=== PATIENT | male | born 1990 | race Asian ===

== ENCOUNTER 2020-03-04 11:27 | Outpatient (REF) | payer MEDICARE, MEDICAID, SELFPAY | END 2020-03-04 11:28 | disposition home or self-care (01) | LOC: HO.LAB 11:27 | PROVIDERS: PCP Internal Medicine; Visit Provider Internal Medicine | DX: Z20.828 Contact with and (suspected) exposure to other viral communicable diseases (principal) | CPT/HCPCS: C9803; U0003 ==

== ENCOUNTER 2020-04-15 07:50 | Outpatient (REF) | payer MEDICARE, MEDICAID, SELFPAY | END 2020-04-15 07:51 | disposition home or self-care (01) | LOC: HO.LAB 07:50 | PROVIDERS: Visit Provider Internal Medicine | DX: Z20.822 Contact with and (suspected) exposure to COVID-19 (principal) | CPT/HCPCS: 36415; C9803; U0003 ==

== ENCOUNTER 2022-06-25 09:13 | Outpatient (REF) | payer MEDICARE, MEDICAID, SELFPAY ==
[2022-06-25 09:37] LABS: MANUAL DIFF FLAG NO
[2022-06-25 09:58] LABS: Basophils Percent Auto 0.5 % (0-2); Eosinophils Absolute Auto 0.1 X10*3/uL (0.0-0.4); Eosinophils Percent Auto 1.3 % (0-4); Hematocrit 43.3 % (42.0-52.0); Hemoglobin 14.4 g/dl (14.0-18.0); Imm Gran Abs Auto 0.03 X10*3/uL (0.00-0.03); Imm Gran Pct Auto 0.4 % (0.0-0.4); Lymphocytes Absolute Auto 2.2 X10*3/uL (1.2-4.9); Lymphocytes Percent Auto 26.2 % (20-40); Mean Corpuscular HGB Conc 33.3 g/dl (31.0-36.0); Mean Corpuscular Hemoglobin 29.4 pg (27.0-33.0); Mean Corpuscular Volume 88.5 fL (80.0-98.0); Mean Platelet Volume 10.1 fL (9.4-12.4); Monocytes Absolute Auto 0.4 X10*3/uL (0.1-1.2); Monocytes Percent Auto 4.8 % (2-11); Neutrophils Absolute Auto 5.5 x10*3/uL (2.0-8.3); Neutrophils Percent Auto 66.8 % (45-73); Platelet Count 250 X10*3/uL (160-400); Red Blood Count 4.89 X10*6/uL (4.60-5.80); Red Cell Distribution Width 12.9 % (11.0-16.0); White Blood Count 8.3 X10*3/uL (4.8-10.8)
[2022-06-25 10:43] LABS: Estimated Average Glucose 105 mg/dL; Hemoglobin A1c % 5.3 %
[2022-06-25 11:42] LABS: Alanine Aminotransferase 26 U/L (0-40); Albumin Level 3.9 g/dL (3.5-5.0); Alkaline Phosphatase 55 U/L (39-117); Anion Gap 13 (12-20); Aspartate Amino Transferase 17 U/L (5-37); Bilirubin Total 0.6 mg/dL (0.0-1.0); Blood Urea Nitrogen 10 mg/dL (9-16); Carbon Dioxide 25 mmol/L (22-29); Chloride 106 mmol/L (96-108); Cholesterol 141 mg/dL; Estimated Glomerular Filt Rate > 60; Glucose Random 95 mg/dL (60-115); HDL Cholesterol 39 mg/dL; LDL Cholesterol Calculated 96 mg/dl; Potassium 4.3 mmol/L (3.3-5.1); Sodium 140 mmol/L (135-145); Total Protein 6.8 g/dL (6.5-8.0); Triglycerides 34 mg/dL
[2022-06-25 12:08] LABS: Valproate < 12.5 mcg/mL (50.0-100.0)
[2022-06-26 17:38] LABS: Prolactin 7.4 ng/mL (2.0-18.0)
== END 2022-06-25 09:14 | disposition home or self-care (01) ==
LOC: HO.LAB 09:13
PROVIDERS: PCP Internal Medicine; Visit Provider Registered Nurse
DX: F84.0 Autistic disorder (principal)
CPT/HCPCS: 36415; 80053; 80061; 80164; 83036; 84146; 85025

== ENCOUNTER 2022-12-19 11:22 | Outpatient (AMB) | payer MEDICARE, MEDICAID, SELFPAY ==
--- NOTE | 2022-12-19 11:25 | A.OFFPC_ITS ---
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 Accompanied by: Father Allergies No Known Allergies Allergy (Verified 12/19/22 11:27) Medication List - Last Reconciled 12/19/22 by Medardo Denis MD clonidine HCl 0.3 mg PO .QHS divalproex ER 500 mg PO DAILY risperidone 0.5 mg PO BID Tobacco use date assessed: 12/19/22 Dental Screening Dental Screen Date: 12/19/22 Did you have a dental visit in the last 12 months?: No Did you have a dental problem in the last 6 months where you did not have access to dental care?: No Was dental information given to patient?: Patient has dentist HPI annual exam HPI Details 32-year-old obese male with autism comes in for physical exam last seen in October 2021 blood work requested. [facility] Medical History (Updated 12/19/22 @ 11:45 by Medardo Denis MD) Vitamin D deficiency Obesity Autism Surgical History No pertinent past surgical history Family History Father No problems noted. Mother No problems noted. Social History Housing: House Alcohol intake: never Patient Tobacco Use Status: Never used Tobacco e-Cigarette/Vaping Use: Never Used Second Hand Smoke Exposure: No service: No Current occupational status: disabled Cognitive needs: No Hearing needs: No Vision needs: No Questionnaire PHQ-9 Over the last 2 weeks, how often have you been bothered by any of the following problems? 1. Little interest or pleasure in doing things: not at all 2. Feeling down, depressed, or hopeless: not at all 3. Trouble falling or staying asleep, or sleeping too much: not at all 4. Feeling tired or having little energy: not at all 5. Poor appetite or overeating: not at all 6. Feeling bad about yourself - or that you are a failure or have let yourself or your family down: not at all 7. Trouble concentrating on things, such as reading the newspaper or watching television: not at all 8. Moving or speaking so slowly that other people could have noticed. Or the opposite - being so fidgety or restless that you have been moving around a lot more than usual: several days 9. Thoughts that you would be better off or of hurting yourself in some way: not at all Total score: 1 Source: Developed by Drs. Orville Aranda, Stephania Mcclellan, Jose Alfredo Diop and colleagues, with an educational antione from [employer]. Thrive Questionnaire Date Thrive assessed: 12/19/22 I am a: Patient What is your living situation today?: I have a steady place to live Within the past 12 months, did the food you bought not last and you didn't have the money to get more?: Never true Within the past 12 months, did you worry whether your food would run out before you got money to buy more?: Never true Do you have trouble paying for medicines?: No Do you have trouble getting transportation to medical appointments?: No Do you have trouble paying your heating and electricity bill?: No Do you have trouble taking care of your child, family member or friend?: No Do you have trouble with day-to-day activities such as bathing, preparing meals, shopping, managing finances, etc.?: No Are you currently unemployed and looking for a job?: No Are you interested in more education?: No Please select the resources that you would like help with: None Currently or been in a relationship where the following occur: no concerns reported AUDIT C Alcohol Use Questionnaire (AUDIT-C) 1. How often do you have a drink containing alcohol?: Never Total Score: 0 YAIMA-7 AMB Questionnaire YAIMA-7 Date YAIMA - 7 assessed: 12/19/22 Feeling nervous, anxious, or on edge: 0 = Not at all Not being able to stop or control worryin = Not at all Worrying too much about different things: 0 = Not at all Trouble relaxin = Not at all Being so restless that it is hard to sit still: 0 = Not at all Becoming easily annoyed or irritable: 0 = Not at all Feeling afraid as if something awful might happen: 0 = Not at all Total YAIMA-7 score (0-4 normal; 5-9 mild; 10-14 moderate; 15-21 severe): 0 Source: Developed by Drs. Orville Aranda, Stephania Mcclellan, Jose Alfredo Diop and colleagues, with an educational antione from [employer]. Review of Systems Const Denies poor appetite and Denies weakness Eyes Denies no additional complaints ENT Reports Normal hearing present, Denies dizziness, Denies nasal congestion, Denies tinnitus and Denies sore throat Card Denies chest pain, Denies syncope, Denies rapid heart rate and Denies dyspnea Resp Denies cough and Denies dyspnea GI Denies change in stool character, Reports constipation, Denies diarrhea, Denies nausea and Denies vomiting Denies dysuria and Denies urinary frequency Neuro Reports Normal hearing present, Denies confusion, Denies dizziness, Denies syncope and Denies weakness Psych Denies confusion Physical exam (Primary Care) Vital Signs: Last Vital Signs Pulse 74 12/19/22 11:26 BP 114/80 12/19/22 11:26 Pulse Ox 97 12/19/22 11:26 Oxygen Delivery Method Room Air 12/19/22 11:26 BMI result Body Mass Index 35.9 Tobacco/Smoking Status: Tobacco use Status Tobacco use date assessed 12/19/22 12/19/22 11:31 Patient Tobacco Use Status Never used Tobacco 12/19/22 11:26 e-Cigarette/Vaping Use Never Used 12/19/22 11:26 PHQ-9: PHQ-9 Score PHQ-9: Total score 1 12/19/22 11:31 Thrive Assessment: Date of Thrive Assessment Date Thrive assessed 12/19/22 12/19/22 11:31 Currently or been in a relationship where the following occur: no concerns reported Const General: No confusion Orientation/consciousness: No confusion HENMT Head: Yes normocephalic Ears: external ears normal and TM's normal bilaterally Face and sinus: Yes normal facial exam Mouth: moist mucous membranes Throat: Yes tonsils normal Eyes Conjunctivae: conjunctivae normal Pupils: Equal, round and reactive pupils present and Pupil accommodation reflex normal Direct Ophthalmoscopy: normal light reflex Neck Neck: No lymphadenopathy Thyroid: Thyroid normal Chest Chest palpation & inspection: normal inspection of the chest Resp Effort & Inspection: normal respiratory effort and no audible wheezes Auscultation: clear to auscultation bilaterally, no crackles, no wheezes and lung sounds not diminished Cardio Rate: regular rate Rhythm: regular rhythm Peripheral pulses: radial pulses present and dorsalis pedis present GI Palpation (GI): no masses Auscultation: normal bowel sounds and normoactive bowel sounds Rectal Exam - Male: Yes deferred Male General Exam: Yes normal external exam Skin General skin exam: no rashes or lesions noted Rashes: no rashes Neuro General: No confusion Cranial nerves: Yes Equal, round and reactive pupils present and Yes Normal hearing present Cognition (Neuro): normal cognition Gait exam (Neuro): Normal gait present Motor exam (neuro): 5/5 motor strength present throughout Deep tendon reflexes (DTR's): Right brachioradialis reflex intensity grade: 2+, Left brachioradialis reflex intensity grade: 2+, Right patellar reflex intensity grade: 2+ and Left patellar reflex intensity grade: 2+ Extrem General: No edema Assessment and Plan Assessment & Plan (1) Annual physical exam: Code(s): Z00.00 - Encounter for general adult medical examination without abnormal findings (2) Obesity: Comment: Code(s): E66.9 - Obesity, unspecified Qualifiers: Obesity type: due to excess calories Obesity classification: adult class 2 (BMI 35 - 39.9) Serious obesity comorbidity presence: without serious comorbidity Body mass index: BMI 38.0-38.9 Qualified Code(s): E66.09 - Other obesity due to excess calories; Z68.38 - Body mass index [BMI] 38.0-38.9, adult Plan: Diet and exercise (3) Autism: Code(s): F84.0 - Autistic disorder Plan: Continue with present medication (4) Mixed incontinence urge and stress: Code(s): N39.46 - Mixed incontinence Orders: Orders Free T4 (Free Thyroxine) 6 Months E66.09 - Other obesity due to excess calories, Z68.38 - Body mass index [BMI] 38.0-38.9, adult Thyroid Stimulating Hormone 6 Months E66.09 - Other obesity due to excess calories, Z68.38 - Body mass index [BMI] 38.0-38.9, adult Vitamin B12 and Folate 6 Months E66.09 - Other obesity due to excess calories, Z68.38 - Body mass index [BMI] 38.0-38.9, adult UA w Microscopic 6 Months N39.46 - Mixed incontinence Complete Blood Count Auto Diff 6 Months E66.09 - Other obesity due to excess calories, Z68.38 - Body mass index [BMI] 38.0-38.9, adult Comprehensive Met. Panel 6 Months E66.09 - Other obesity due to excess calories, Z68.38 - Body mass index [BMI] 38.0-38.9, adult Lipid Panel 6 Months E66.09 - Other obesity due to excess calories, E78.00 - Pure hypercholesterolemia, unspecified, Z68.38 - Body mass index [BMI] 38.0-38 .9, adult Hemoglobin A1c 6 Months E66.09 - Other obesity due to excess calories, Z68.38 - Body mass index [BMI] 38.0-38.9, adult Valproate 6 Months E66.09 - Other obesity due to excess calories, Z68.38 - Body mass index [BMI] 38.0-38.9, adult Medications: New [DEPENDS XXL] As directed 100 ea 11RF F84.0 - Autistic disorder, N39.46 - Mixed incontinence Coding Level of Care Code Est Pt Prev Care 18-39y(77416) Diagnoses Annual physical exam Z00.00 Class 2 obesity due to excess calories without serious comorbidity with body mass index (BMI) of 38.0 to 38.9 in adult E66.09; Z68.38 Obesity type: due to excess calories Obesity classification: adult class 2 (BMI 35 - 39.9) Serious obesity comorbidity presence: without serious comorbidity Body mass index: BMI 38.0-38.9 Autism F84.0 Mixed incontinence urge and stress N39.46
[2022-12-19 11:26] VITALS: BP 114/80; PULSE 74; O2SAT 97; BMI 35.9
== END 2022-12-19 11:50 | disposition home or self-care (01) ==
PROVIDERS: PCP Internal Medicine; Visit Provider Internal Medicine
DX: Z00.00 Encounter for general adult medical examination without abnormal findings (principal); E66.09 Other obesity due to excess calories; Z68.38 Body mass index [BMI] 38.0-38.9, adult; F84.0 Autistic disorder; N39.46 Mixed incontinence
CPT/HCPCS: 99395

== ENCOUNTER 2023-12-17 09:50 | Outpatient (REF) | payer MEDICARE, MEDICAID, SELFPAY ==
[2023-12-17 10:08] LABS: MANUAL DIFF FLAG NO
[2023-12-17 10:57] LABS: Basophils Absolute Auto 0.1 X10*3/uL (0.0-0.2); Basophils Percent Auto 0.6 % (0-2); Eosinophils Absolute Auto 0.1 X10*3/uL (0.0-0.4); Eosinophils Percent Auto 1.3 % (0-4); Hematocrit 43.1 % (42.0-52.0); Imm Gran Abs Auto 0.04 X10*3/uL (0.00-0.03); Imm Gran Pct Auto 0.5 % (0.0-0.4); Lymphocytes Absolute Auto 2.5 X10*3/uL (1.2-4.9); Mean Corpuscular HGB Conc 32.5 g/dl (31.0-36.0); Mean Corpuscular Volume 89.2 fL (80.0-98.0); Mean Platelet Volume 10.1 fL (9.4-12.4); Monocytes Absolute Auto 0.4 X10*3/uL (0.1-1.2); Monocytes Percent Auto 5.1 % (2-11); Neutrophils Absolute Auto 5.5 x10*3/uL (2.0-8.3); Neutrophils Percent Auto 63.5 % (45-73); Platelet Count 242 X10*3/uL (160-400); Red Blood Count 4.83 X10*6/uL (4.60-5.80); Red Cell Distribution Width 12.9 % (11.0-16.0); White Blood Count 8.7 X10*3/uL (4.8-10.8)
[2023-12-17 11:25] LABS: Estimated Average Glucose 111 mg/dL; Hemoglobin A1c % 5.5 % (<6.0)
[2023-12-17 11:46] LABS: Alanine Aminotransferase 33 U/L (0-40); Albumin Level 3.8 g/dL (3.5-5.0); Alkaline Phosphatase 51 U/L (39-117); Anion Gap 12 (12-20); Aspartate Amino Transferase 18 U/L (5-37); Bilirubin Total 0.3 mg/dL (0.0-1.0); Blood Urea Nitrogen 16 mg/dL (9-16); Calcium 9.4 mg/dL (8.4-10.2); Carbon Dioxide 22 mmol/L (22-29); Chloride 107 mmol/L (96-108); Cholesterol 123 mg/dL (<200); Estimated Glomerular Filt Rate > 60; Glucose Random 88 mg/dL (60-115); HDL Cholesterol 37 mg/dL (>40); LDL Cholesterol Calculated 79 mg/dL (<100); Potassium 4.3 mmol/L (3.3-5.1); Sodium 137 mmol/L (135-145); Total Protein 7.4 g/dL (6.5-8.0); Triglycerides 37 mg/dL (<150)
[2023-12-17 12:04] LABS: Valproate < 12.5 mcg/mL (50.0-100.0)
[2023-12-18 08:09] LABS: Prolactin 6.2 ng/mL (2.0-18.0)
== END 2023-12-17 09:51 | disposition home or self-care (01) ==
LOC: HO.LAB 09:50
PROVIDERS: PCP Internal Medicine; Visit Provider Registered Nurse
DX: Z79.899 Other long term (current) drug therapy (principal)
CPT/HCPCS: 36415; 80053; 80061; 80164; 83036; 84146; 85025

== ENCOUNTER 2023-12-24 09:00 | Outpatient (AMB) | payer MEDICARE, MEDICAID, SELFPAY ==
[2023-12-24 09:01] VITALS: BP 126/74; PULSE 74; O2SAT 97; BMI 46.8
--- NOTE | 2023-12-24 09:01 | A.OFFPC_ITS ---
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 [facility] Medical History (Updated 12/24/23 @ 12:15 by Medardo Denis MD) Obesity Vitamin D deficiency Autism Surgical History No pertinent past surgical history Family History Father No problems noted. Mother No problems noted. Social History Housing: House Alcohol intake: never Patient Tobacco Use Status: Never used Tobacco Tobacco use type: Cigarette e-Cigarette/Vaping Use: Never Used Second Hand Smoke Exposure: No service: No Current occupational status: disabled Cognitive needs: Yes Hearing needs: No Vision needs: No Questionnaire PHQ-9 Over the last 2 weeks, how often have you been bothered by any of the following problems? 1. Little interest or pleasure in doing things: not at all 2. Feeling down, depressed, or hopeless: not at all 3. Trouble falling or staying asleep, or sleeping too much: not at all 4. Feeling tired or having little energy: not at all 5. Poor appetite or overeating: not at all 6. Feeling bad about yourself - or that you are a failure or have let yourself or your family down: not at all 7. Trouble concentrating on things, such as reading the newspaper or watching television: not at all 8. Moving or speaking so slowly that other people could have noticed. Or the opposite - being so fidgety or restless that you have been moving around a lot more than usual: several days 9. Thoughts that you would be better off or of hurting yourself in some way: not at all Total score: 1 Source: Developed by Drs. Orville Aranda, Stephania Mcclellan, Jose Alfredo Diop and colleagues, with an educational antione from [employer]. Thrive Questionnaire Date Thrive assessed: 12/24/23 I am a: Patient What is your living situation today?: I choose not to answer this question Within the past 12 months, did the food you bought not last and you didn't have the money to get more?: I choose not to answer this question Within the past 12 months, did you worry whether your food would run out before you got money to buy more?: I choose not to answer this question Do you have trouble paying for medicines?: I choose not to answer this question Do you have trouble getting transportation to medical appointments?: I choose not to answer this question Do you have trouble paying your heating and electricity bill?: I choose not to answer this question Do you have trouble taking care of your child, family member or friend?: I choose not to answer this question Do you have trouble with day-to-day activities such as bathing, preparing meals, shopping, managing finances, etc.?: I choose not to answer this question Are you currently unemployed and looking for a job?: I choose not to answer this question Are you interested in more education?: I choose not to answer this question Please select the resources that you would like help with: None Currently or been in a relationship where the following occur: I choose not to answer THRIVE Score: 0 AUDIT C Alcohol Use Questionnaire (AUDIT-C) 1. How often do you have a drink containing alcohol?: Never Total Score: 0 YAIMA-7 AMB Questionnaire YAIMA-7 Date YAIMA - 7 assessed: 12/24/23 Feeling nervous, anxious, or on edge: 0 = Not at all Not being able to stop or control worryin = Not at all Worrying too much about different things: 0 = Not at all Trouble relaxin = Not at all Being so restless that it is hard to sit still: 0 = Not at all Becoming easily annoyed or irritable: 0 = Not at all Feeling afraid as if something awful might happen: 0 = Not at all Total YAIMA-7 score (0-4 normal; 5-9 mild; 10-14 moderate; 15-21 severe): 0 Source: Developed by Drs. Orville Aranda, Stephania Mcclellan, Jose Alfredo Diop and colleagues, with an educational antione from [employer]. Review of Systems Const Denies poor appetite and Denies weakness Eyes Denies no additional complaints ENT Reports Normal hearing present, Denies dizziness, Denies nasal congestion, Denie s tinnitus and Denies sore throat Card Denies chest pain, Denies syncope, Denies rapid heart rate and Denies dyspnea Resp Denies cough and Denies dyspnea GI Denies change in stool character, Reports constipation, Denies diarrhea, Denies nausea and Denies vomiting Denies dysuria and Denies urinary frequency Neuro Reports Normal hearing present, Denies confusion, Denies dizziness, Denies syncope and Denies weakness Psych Denies confusion Physical exam (Primary Care) Vital Signs: Last Vital Signs Pulse 74 12/24/23 09:01 BP 126/74 12/24/23 09:01 Pulse Ox 97 12/24/23 09:01 Oxygen Delivery Method Room Air 12/24/23 09:01 BMI result Body Mass Index 46.8 Tobacco/Smoking Status: Tobacco use Status Tobacco use date assessed 12/24/23 12/24/23 09:07 Patient Tobacco Use Status Never used Tobacco 12/24/23 09:07 Tobacco use type Cigarette 12/24/23 09:07 e-Cigarette/Vaping Use Never Used 12/24/23 09:07 PHQ-9: PHQ-9 Score PHQ-9: Total score 1 12/24/23 09:26 Thrive Assessment: Date of Thrive Assessment Date Thrive assessed 12/24/23 12/24/23 09:07 Currently or been in a relationship where the following occur: I choose not to answer Const General: No confusion Orientation/consciousness: No confusion HENMT Other: Bilateral impacted cerumen Head: Yes normocephalic Ears: external ears normal Face and sinus: Yes normal facial exam Mouth: moist mucous membranes Throat: Yes tonsils normal Eyes Conjunctivae: conjunctivae normal Pupils: Equal, round and reactive pupils present and Pupil accommodation reflex normal Direct Ophthalmoscopy: normal light reflex Neck Neck: No lymphadenopathy Thyroid: Thyroid normal Chest Chest palpation & inspection: normal inspection of the chest Resp Effort & Inspection: normal respiratory effort and no audible wheezes Auscultation: clear to auscultation bilaterally, no crackles, no wheezes and lung sounds not diminished Cardio Rate: regular rate Rhythm: regular rhythm Peripheral pulses: radial pulses present and dorsalis pedis present GI Other: visual negative Palpation (GI): no masses Auscultation: normal bowel sounds and normoactive bowel sounds Rectal Exam - Male: Yes deferred Male General Exam: Yes normal external exam Skin General skin exam: no rashes or lesions noted Rashes: no rashes Neuro General: No confusion Cranial nerves: Yes Equal, round and reactive pupils present and Yes Normal hearing present Cognition (Neuro): normal cognition Gait exam (Neuro): Normal gait present Motor exam (neuro): 5/5 motor strength present throughout Deep tendon reflexes (DTR's): Right brachioradialis reflex intensity grade: 2+, Left brachioradialis reflex intensity grade: 2+, Right patellar reflex intensity grade: 2+ and Left patellar reflex intensity grade: 2+ Extrem General: No edema Assessment and Plan Assessment & Plan (1) Annual physical exam: Code(s): Z00.00 - Encounter for general adult medical examination without abnormal findings Plan: Patient is advised to eat healthy, keep well hydrated, keep active and have adequate sleep. (2) Obesity: Comment: Code(s): E66.9 - Obesity, unspecified Qualifiers: Body mass index: BMI 38.0-38.9 Obesity classification: adult class 2 (BMI 35 - 39.9) Obesity type: due to excess calories Serious obesity comorbidity presence: without serious comorbidity Qualified Code(s): E66.09 - Other obesity due to excess calories; Z68.38 - Body mass index [BMI] 38.0-38.9, adult Plan: Diet and exercise (3) Autism: Code(s): F84.0 - Autistic disorder Plan: Continue follow-up with psychiatry and counseling. (4) Mixed incontinence urge and stress: Code(s): N39.46 - Mixed incontinence Plan: Timed voiding meaning every 1-2 hours even if you do not feel like urinating empty the bladder, avoid drinks with high sweet content like juices or caffeine that makes her urinate, 2 hours before you sleep hold liquids so that in the morning you do not get the bladder to be too full. (5) Morbid obesity: Code(s): E66.01 - Morbid (severe) obesity due to excess calories Plan: diet and exercise , concern on weight - no history of thyroid cancer . would like to try med to help with loosing weight (6) Bilateral impacted cerumen: Code(s): H61.23 - Impacted cerumen, bilateral Plan: Patient will schedule for ear irrigation as needed Medications: New tirzepatide (Mounjaro) for 4 weeks 2.5 mg (0.5 mL) subcut QWEEK 2 mL 1RF E66.01 - Morbid (severe) obesity due to excess calories Coding Level of Care Code Est Pt Prev Care 18-39y([id number]) Diagnoses Annual physical exam Z00.00 Class 2 obesity due to excess calories without serious comorbidity with body mass index (BMI) of 38.0 to 38.9 in adult E66.09; Z68.38 Body mass index: BMI 38.0-38.9 Obesity classification: adult class 2 (BMI 35 - 39.9) Obesity type: due to excess calories Serious obesity comorbidity presence: without serious comorbidity Autism F84.0 Mixed incontinence urge and stress N39.46 Morbid obesity E66.01 Bilateral impacted cerumen H61.23
== END 2023-12-24 09:41 | disposition home or self-care (01) ==
PROVIDERS: PCP Internal Medicine; Visit Provider Internal Medicine
DX: Z00.00 Encounter for general adult medical examination without abnormal findings (principal); Z68.42 Body mass index [BMI] 45.0-49.9, adult; E66.01 Morbid (severe) obesity due to excess calories; F84.0 Autistic disorder; N39.46 Mixed incontinence; H61.23 Impacted cerumen, bilateral

== ENCOUNTER → 2023-12-24 09:00 | Outpatient (BNVA) | payer MEDICARE, MEDICAID, SELFPAY | PROVIDERS: PCP Internal Medicine; Visit Provider Internal Medicine | DX: Z00.00 Encounter for general adult medical examination without abnormal findings (principal); E66.09 Other obesity due to excess calories; Z68.38 Body mass index [BMI] 38.0-38.9, adult; F84.0 Autistic disorder; N39.46 Mixed incontinence; E66.01 Morbid (severe) obesity due to excess calories; H61.23 Impacted cerumen, bilateral | CPT/HCPCS: 99395 ==

== ENCOUNTER 2024-03-19 13:50 | Outpatient (AMB) | payer MEDICARE, MEDICAID, SELFPAY ==
--- NOTE | 2024-03-19 13:54 | MHC.OFFWIV ---
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 Patient was sent home from day program today due to cough. Patient is nonverbal. Annie provides the history. He coughs occasionally she says since yesterday. Cough is nonproductive. Otherwise he is at baseline. He has not appeared uncomfortable. He is eating and drinking normally. No fevers or chills. Nurse coordinator listened to his lungs yesterday and heard no wheezing or congestion. They say he has received the flu vaccine. He tested negative for COVID-19 this morning. Patient has no history of chronic respiratory disease. ROS: Constitutional: No fevers, chills, fatigue. Eyes: No eye redness or discharge. ENT: No runny nose or apparent congestion. Respiratory: No sputum production. Patient has not seem short of breath or had wheezing. Gastrointestinal: No vomiting or diarrhea. Physical exam: Constitutional: Alert, in no distress. Eyes: No erythema or discharge. Ear, Nose and Throat: Canals clear aside from a small amount of light brown cerumen. TMs normal. Normal nasal mucosa. No nasal discharge. No oral lesions. No visible exudates, swelling or erythema though throat exam was limited by patient's cooperation during exam. Neck: Supple, Full range of motion. No lymphadenopathy. Respiratory: Clear to auscultation. Cardiovascular: S1 S2 regular. No murmurs. [facility] Medical History (Updated 02/28/24 @ 18:09 by Medardo Denis MD) Obesity Vitamin D deficiency Autism Surgical History No pertinent past surgical history Family History Father No problems noted. Mother No problems noted. Social History Housing: House Alcohol intake: never Patient Tobacco Use Status: Never used Tobacco Tobacco use type: Cigarette e-Cigarette/Vaping Use: Never Used Second Hand Smoke Exposure: No service: No Current occupational status: disabled Cognitive needs: Yes Hearing needs: No Vision needs: No Physical Exam Vital Signs: Last Vital Signs Temp 97.7 F 03/19/24 14:03 Pulse 99 03/19/24 14:03 Resp 16 03/19/24 14:03 BP 134/88 03/19/24 14:03 Pulse Ox 97 03/19/24 14:03 Oxygen Delivery Method Room Air 03/19/24 14:03 BMI result Body Mass Index 45.5 Assessment & Plan Assessment & Plan (1) Cough: Code(s): R05.9 - Cough, unspecified Plan Patient well-appearing. Vitals normal. They report he has been at baseline aside from occasional dry cough. Cough may be viral or due to allergen. Sent prescription for cough medication to use as needed. We reviewed warning signs to follow up. Medication form completed 4 nurse coordinator. Medications: New dextromethorphan-guaifenesin 20-400 mg/5 mL 5 mL PO Q6H PRN 473 mL 3RF cough Coding Level of Care Code Est Pt Level 3 (54948) Diagnoses Cough R05.9
[2024-03-19 14:03] VITALS: BP 134/88; PULSE 99; RESP 16; TEMP 36.5; O2SAT 97; BMI 45.5
== END 2024-03-19 14:34 | disposition home or self-care (01) ==
PROVIDERS: PCP Internal Medicine; Visit Provider Physician Assistant Medical
DX: R05.9 Cough, unspecified (principal)

== ENCOUNTER → 2024-03-19 13:50 | Outpatient (BNVA) | payer MEDICARE, MEDICAID, SELFPAY | PROVIDERS: PCP Internal Medicine; Visit Provider Nurse Practitioner Family | DX: R05.9 Cough, unspecified (principal) | CPT/HCPCS: 99212 ==

== ENCOUNTER 2024-03-31 11:41 | Outpatient (AMB) | payer MEDICARE, MEDICAID, SELFPAY ==
[2024-03-31 11:42] VITALS: BP 118/74; PULSE 121; O2SAT 99; BMI 45.4
--- NOTE | 2024-03-31 11:42 | A.OFFPC_ITS ---
Vital Signs 03/31/24 11:42 Height 5 ft 7 in Weight 290 lb 2 oz BMI 45.4 BP 118/74 Blood Pressure Location Rt brachial Position Sitting Pulse 121 H Pulse Source Pulse Oximeter Pulse Oximetry (%) 99 Oxygen Delivery Method Room Air Intake Visit Reasons: morbid obesity Allergies No Known Allergies Allergy (Verified 03/31/24 11:46) Medication List - Last Reconciled 03/31/24 by Medardo Denis MD acetaminophen 325 mg PO Q6H PRN 30 days benztropine 0.5 mg PO DAILY clonidine HCl 0.3 mg PO .QHS [DEPENDS XXXL As directed] dextromethorphan-guaifenesin 20-400 mg/5 mL 5 mL PO Q6H PRN [Diaper liners XXL As directed] divalproex 250 mg PO .QD metformin ER 500 mg PO DAILY risperidone 0.5 mg PO BID risperidone 1 mg PO BID Tobacco use date assessed: 03/31/24 Dental Screening Dental Screen Date: 03/31/24 HPI morbid obesity HPI Details The patient is a 34-year-old male presenting with a need for routine health check-up and oversight of chronic conditions. He has a history of Autism Spectrum Disorder and which was specifically managed due to weight gain associated with antipsychotic medication use. for which he has been on a stable medication regimen. Recently, the patient relocated to a new program where diet modifications were implemented, resulting in weight loss over the past month without a specific diet; he lost approximately 12 pounds by ceasing the consumption of fried foods and increasing water intake. His weight, as of the visit, is recorded at 290 pounds. There have been no reports of excessive weight gain since the intervention. He was seen at [facility] earlier this month for a cough, which was treated effectively with cough medication. The patient has no known allergies; recent medical interactions include treatment with metformin, initiated due to weight- related concerns from antipsychotic use. Additionally, excessive earwax accumulation was noted, with a possibility of requiring an ENT consultation for further evaluation. - Vaccinations: - Tetanus, Diphtheria, P ertussis (Tdap) booster in 2011 - Seasonal influenza shot recommended an d to be administered - Documentation of three COVID-19 vaccin ations - Nutritional Counseling: Encourage a he althy diet with a focus on non-fried foods and increased water intake. - Weight management: Support for continu ed weight loss through current dietary habits and physical activity. - Resides in a supported living environm ent with peer staff available 24 hours. - Has familial support that includes vis its and communication, although the frequency varies. - Participates in day programs, promotin g activity. - Adjusting well to current living arroneida gements. - General: Denies recent weight gain. - Respiratory: Denies current cough but was present earlier in the month.- Labs: Last complete blood work conducted in December; all results within normal limits, with Hemoglobin A1c reported at 5.5%. [facility] Medical History (Updated 03/31/24 @ 12:06 by Medardo Denis MD) Obesity Vitamin D deficiency Autism Surgical History No pertinent past surgical history Family History Father No problems noted. Mother No problems noted. Social History Housing: House Alcohol intake: never Patient Tobacco Use Status: Never used Tobacco Tobacco use type: Cigarette e-Cigarette/Vaping Use: Never Used Second Hand Smoke Exposure: No service: No Current occupational status: disabled Cognitive needs: Yes Hearing needs: No Vision needs: No Questionnaire PHQ-9 Over the last 2 weeks, how often have you been bothered by any of the following problems? 1. Little interest or pleasure in doing things: not at all 2. Feeling down, depressed, or hopeless: not at all 3. Trouble falling or staying asleep, or sleeping too much: not at all 4. Feeling tired or having little energy: not at all 5. Poor appetite or overeating: not at all 6. Feeling bad about yourself - or that you are a failure or have let yourself or your family down: not at all 7. Trouble concentrating on things, such as reading the newspaper or watching television: not at all 8. Moving or speaking so slowly that other people could have noticed. Or the opposite - being so fidgety or restless that you have been moving around a lot more than usual: several days 9. Thoughts that you would be better off or of hurting yourself in some way: not at all Total score: 1 Source: Developed by Drs. Orville Aranda, Stephania Mcclellan, Jose Alfredo Diop and colleagues, with an educational antione from [employer]. Thrive Questionnaire Date Thrive assessed: 03/31/24 I am a: Patient What is your living situation today?: I choose not to answer this question Within the past 12 months, did the food you bought not last and you didn't have the money to get more?: I choose not to answer this question Within the past 12 months, did you worry whether your food would run out before you got money to buy more?: I choose not to answer this question Do you have trouble paying for medicines?: I choose not to answer this question Do you have trouble getting transportation to medical appointments?: I choose not to answer this question Do you have trouble paying your heating and electricity bill?: I choose not to answer this question Do you have trouble taking care of your child, family member or friend?: I choose not to answer this question Do you have trouble with day-to-day activities such as bathing, preparing meals, shopping, managing finances, etc.?: I choose not to answer this question Are you currently unemployed and looking for a job?: I choose not to answer this question Are you interested in more education?: I choose not to answer this question Please select the resources that you would like help with: None Currently or been in a relationship where the following occur: I choose not to answer THRIVE Score: 0 AUDIT C Alcohol Use Questionnaire (AUDIT-C) 1. How often do you have a drink containing alcohol?: Never 3. How often do you have six or more drinks on one occasion?: Never Total Score: 0 YAIMA-7 AMB Questionnaire YAIMA-7 Date YAIMA - 7 assessed: 03/31/24 Feeling nervous, anxious, or on edge: 0 = Not at all Not being able to stop or control worryin = Not at all Worrying too much about different things: 0 = Not at all Trouble relaxin = Not at all Being so restless that it is hard to sit still: 0 = Not at all Becoming easily annoyed or irritable: 0 = Not at all Feeling afraid as if something awful might happen: 0 = Not at all Total YAIMA-7 score (0-4 normal; 5-9 mild; 10-14 moderate; 15-21 severe): 0 Source: Developed by Drs. Orville Aranda, Stephania Mcclellan, Jose Alfredo Diop and colleagues, with an educational antione from [employer]. Review of Systems Const Denies poor appetite and Denies weakness Eyes Denies no additional complaints ENT Reports Normal hearing present, Denies dizziness, Denies nasal congestion, Denies tinnitus and Denies sore throat Card Denies chest pain, Denies syncope, Denies rapid heart rate and Denies dyspnea Resp Denies cough and Denies dyspnea GI Denies change in stool character, Reports constipation, Denies diarrhea, Denies nausea and Denies vomiting Denies dysuria and Denies urinary frequency Neuro Reports Normal hearing present, Denies confusion, Denies dizziness, Denies syncope and Denies weakness Psych Denies confusion Physical exam (Primary Care) Vital Signs: Last Vital Signs Pulse 121 H 03/31/24 11:42 BP 118/74 03/31/24 11:42 Pulse Ox 99 03/31/24 11:42 Oxygen Delivery Method Room Air 03/31/24 11:42 BMI result Body Mass Index 45.4 Tobacco/Smoking Status: Tobacco use Status Tobacco use date assessed 03/31/24 03/31/24 11:49 Patient Tobacco Use Status Never used Tobacco 03/31/24 11:49 Tobacco use type Cigarette 03/31/24 11:49 e-Cigarette/Vaping Use Never Used 03/31/24 11:49 PHQ-9: PHQ-9 Score PHQ-9: Total score 1 03/31/24 11:53 Thrive Assessment: Date of Thrive Assessment Date Thrive assessed 03/31/24 03/31/24 11:49 Currently or been in a relationship where the following occur: I choose not to answer Const General: No confusion Orientation/consciousness: No confusion HENMT Head: Yes normocephalic Ears: external ears normal and TM's normal bilaterally Face and sinus: Yes normal facial exam Mouth: moist mucous membranes Throat: Yes tonsils normal Eyes Conjunctivae: conjunctivae normal Pupils: Equal, round and reactive pupils present and Pupil accommodation reflex normal Direct Ophthalmoscopy: normal light reflex Neck Neck: No lymphadenopathy Thyroid: Thyroid normal Chest Chest palpation & inspection: normal inspection of the chest Resp Effort & Inspection: normal respiratory effort and no audible wheezes Auscultation: clear to auscultation bilaterally, no crackles, no wheezes and lung sounds not diminished Cardio Rate: regular rate Rhythm: regular rhythm Peripheral pulses: radial pulses present and dorsalis pedis present GI Palpation (GI): no masses Auscultation: normal bowel sounds and normoactive bowel sounds Rectal Exam - Male: Yes deferred Skin General skin exam: no rashes or lesions noted Rashes: no rashes Neuro General: No confusion Cranial nerves: Yes Equal, round and reactive pupils present and Yes Normal hearing present Cognition (Neuro): normal cognition Gait exam (Neuro): Normal gait present Motor exam (neuro): 5/5 motor strength present throughout Deep tendon reflexes (DTR's): Right brachioradialis reflex intensity grade: 2+, Left brachioradialis reflex intensity grade: 2+, Right patellar reflex intensity grade: 2+ and Left patellar reflex intensity grade: 2+ Extrem General: No edema Office Procedures Flu Questionnaire Does the patient have a severe egg allergy?: No Does the patient have severe life threatening allergies?: No Does the patient have a fever or illness today?: No Has the patient ever had Guillain-Hartly Syndrome?: No Has the patient ever had any past reaction to a flu shot?: No Immunizations Fluarix Triv [id number] (PF) 45 mcg (15 mcg x 3)/0.5 mL IM syringe Performing Provider: Medardo Denis MD [facility] Administered by: Vaishali Boyer CMA on 03/31/24 12:19 Dose Route Admin Location Dispensed Lot Number Expiration Date NDC Milieu Therapist 0.5 mL IM Left Deltoid 0.5 mL [id number] 10/05/24 [id number] [employer] VIS Given Date VIS Provided VIS Publication Date 03/31/24 Single Vaccine 20 Eligibility Eligibility Date Funding Source Not [facility] Eligible 03/31/24 Private Coding Level of Care Code Est Pt Prev Care [id number]([id number]) Diagnoses Annual physical exam Z00.00 Autism F84.0 Morbid obesity E66.01 Bilateral impacted cerumen H61.23 Assessment & Plan Assessment & Plan (1) Annual physical exam: Code(s): Z00.00 - Encounter for general adult medical examination without abnormal findings Category: Medical (2) Autism: Comment: [facility] Babola Q 3-4 months Code(s): F84.0 - Autistic disorder Category: Medical (3) Morbid obesity: Code(s): E66.01 - Morbid (severe) obesity due to excess calories Category: Medical (4) Bilateral impacted cerumen: Code(s): H61.23 - Impacted cerumen, bilateral Category: Medical Plan - Continue current diabetes management with Metformin, monitoring for effectiveness in weight management. - ENT referral to address excessive cerumen noted and potential associated hearing issues. - Cough: No current follow-up needed as symptom resolved with prior treatment. - Obesity: Continue support for dietary changes and evaluate potential for more structured weight loss programs as needed. I discussed the recent implementation of dietary changes and its positive effect on weight loss. The importance of ongoing weight management was emphasized, particularly concerning his diabetes control. Additionally, I have initiated a referral to the ENT specialist to examine the significant earwax accumulation. We covered the importance of flu vaccination and adherence to his medication regimen, recognizing its role in managing his chronic conditions. I encouraged maintaining activity through day programs. My recommendations included exploring additional health maintenance strategies based on future intervention needs and routine follow-up visits to monitor his health status. - Continue the current diet with a focus on healthy eating and increased water intake. - Maintain participation in day programs for physical activity. - - Receive the seasonal flu vaccine. - Monitor any respiratory symptoms and seek medical attention if they recur. - Await ENT consultation for ear concerns. Orders: Orders Influenza [id number] Immunization Today Z23 - Encounter for immunization Referrals Ear/Nose/Throat Referral H61.23 - Impacted cerumen, bilateral
== END 2024-03-31 12:30 | disposition home or self-care (01) ==
PROVIDERS: PCP Internal Medicine; Visit Provider Internal Medicine
DX: Z00.00 Encounter for general adult medical examination without abnormal findings (principal); F84.0 Autistic disorder; Z68.42 Body mass index [BMI] 45.0-49.9, adult; E66.01 Morbid (severe) obesity due to excess calories; H61.23 Impacted cerumen, bilateral; Z23 Encounter for immunization

== ENCOUNTER → 2024-03-31 11:41 | Outpatient (BNVA) | payer MEDICARE, MEDICAID, SELFPAY | PROVIDERS: PCP Internal Medicine; Visit Provider Internal Medicine | DX: Z00.00 Encounter for general adult medical examination without abnormal findings (principal); E66.01 Morbid (severe) obesity due to excess calories; F84.0 Autistic disorder; H61.23 Impacted cerumen, bilateral; Z23 Encounter for immunization; Z68.42 Body mass index [BMI] 45.0-49.9, adult | CPT/HCPCS: 90471; 90656; 96127; 99395 ==

== ENCOUNTER 2024-06-26 10:33 | Outpatient (AMB) | payer MEDICARE, MEDICAID, SELFPAY ==
--- NOTE | 2024-06-26 10:41 | MHC.PC.OV ---
Vital Signs 06/26/24 10:42 Height 5 ft 7 in Weight 274 lb BMI 42.9 BP 116/86 Blood Pressure Location Lt brachial Position Sitting Pulse 118 H Pulse Source Pulse Oximeter Temp 96.8 F Temp Source Temporal Artery Scan Pulse Oximetry (%) 96 Oxygen Delivery Method Room Air Intake Visit Reasons: coughing/sneezing Bilingual Call Center Representative Required: No Accompanied by: Residential Duplication Specialist and Nurse Allergies No Known Allergies Allergy (Verified 06/26/24 11:08) Medication List - Last Reconciled 06/26/24 by NAYA Graham acetaminophen mg PO benztropine 0.5 mg PO DAILY clonidine HCl mg PO [DEPENDS XXXL As directed] dextromethorphan-guaifenesin 20-400 mg/5 mL 5 mL PO Q6H PRN [Diaper liners XXL As directed] divalproex 250 mg PO .QD metformin ER 500 mg PO DAILY risperidone 0.5 mg PO BID risperidone 1 mg PO BID Tobacco use date assessed: 06/26/24 Dental Screening Dental Screen Date: 06/26/24 Did you have a dental visit in the last 12 months?: No Did you have a dental problem in the last 6 months where you did not have access to dental care?: No Was dental information given to patient?: Patient has dentist HPI coughing/sneezing HPI Details The patient is 34 year old autistic male accompanied by two staff members The information was obtained from the staff members Per staff members, the patient is has a runny nose for 3 days; he has been coughing and sneezing Denies fever or chills. Staff member reports that the patient vital signs have stable Lungs clear to auscultation bilaterally. No evidence of respiratory distress [facility] Medical History (Updated 06/26/24 @ 21:16 by NAYA Graham) Obesity Vitamin D deficiency Autism Surgical History No pertinent past surgical history Family History Father No problems noted. Mother No problems noted. Social History Housing: Other Housing Other:: Residential Facility Alcohol intake: never Patient Tobacco Use Status: Never used Tobacco Tobacco use type: Cigarette e-Cigarette/Vaping Use: Never Used Second Hand Smoke Exposure: No service: No Current occupational status: disabled Cognitive needs: Yes Hearing needs: No Vision needs: No Questionnaire Thrive Questionnaire Date Thrive assessed: 06/26/24 YAIMA-7 AMB Questionnaire YAIMA-7 Date YAIMA - 7 assessed: 03/31/24 Source: Developed by Drs. Orville Aranda, Stephania Mcclellan, Jose Alfredo Diop and colleagues, with an educational antione from [employer]. Review of Systems ENT Reports nasal congestion, Denies sore throat and Reports other (sneezing intermittently) Card Denies chest pain, Denies leg edema and Denies lightheadedness Resp Reports cough (dry), Denies hemoptysis and Reports other (intermittently sneezing) GI Denies abdominal pain, Denies melena, Denies constipation, Denies diarrhea and Denies vomiting Musc Denies arthralgias and Denies joint swelling Physical exam (Primary Care) Vital Signs: Last Vital Signs Temp 96.8 F 06/26/24 10:42 Pulse 118 H 06/26/24 10:42 BP 116/86 06/26/24 10:42 Pulse Ox 96 06/26/24 10:42 Oxygen Delivery Method Room Air 06/26/24 10:42 BMI result Body Mass Index 42.9 Tobacco/Smoking Status: Tobacco use Status Tobacco use date assessed 06/26/24 06/26/24 10:54 Patient Tobacco Use Status Never used Tobacco 06/26/24 10:54 Tobacco use type Cigarette 06/26/24 10:54 e-Cigarette/Vaping Use Never Used 06/26/24 10:54 Thrive Assessment: Date of Thrive Assessment Date Thrive assessed 06/26/24 06/26/24 10:54 Const General: healthy appearing, no acute distress, alert and awake Nutritional Appearance: well nourished HENMT Ears: TM abnormal obstructed by cerumen bilateral General nose exam: Abnormal mucous membranes and turbinates present boggy and erythematous Eyes Conjunctivae: conjunctivae normal Sclerae: sclerae normal Neck Neck: Yes no lymphadenopathy and Yes no JVD Thyroid: Thyroid normal Carotids: no bruits Resp Effort & Inspection: normal respiratory effort and not tachypneic Auscultation: no crackles, no rales, no rhonchi and no wheezes Cardio Rate: regular rate Rhythm: regular rhythm Heart sounds: no murmurs and normal S1 and S2 GI Palpation (GI): Soft to palpation, nontender, no hepatomegaly and no splenomegaly Auscultation: normal bowel sounds Coding Level of Care Code Est Pt Level 3 (03096) Diagnoses Acute cough R05.1 Cough type: acute Upper respiratory disease J39.9 Nasal congestion R09.81 Bilateral impacted cerumen H61.23 Time Spent (min) 28 Assessment & Plan Assessment & Plan (1) Cough: Code(s): R05.9 - Cough, unspecified Category: Medical Qualifiers: Cough type: acute Qualified Code(s): R05.1 - Acute cough Plan: The patient is autistic at baseline. Staff member reports that the patient has been having a dry intermittent cough Benzonatate 100 mg BID ordered (2) Upper respiratory disease: Code(s): J39.9 - Disease of upper respiratory tract, unspecified Category: Medical Plan: Respiratory panel ordered (3) Nasal congestion: Code(s): R09.81 - Nasal congestion Category: Medical Plan: Fluticasone propionate 50 mcg/actuation 1 spray intranasal BID and loratadine 10 mg monet PRN (4) Bilateral impacted cerumen: Code(s): H61.23 - Impacted cerumen, bilateral Category: Medical Plan: Staff member reports that the patient struggles with frequent ear impaction Reports that staff usually take care of the situation and that they have debrox ear drops that they will be using Orders: Orders SARS-CoV2/FLU/RSV Today J39.9 - Disease of upper respiratory tract, unspecified Medications: New fluticasone propionate 50 mcg/actuation administer into each nostril Use for 14 days two times a day, then may use as needed 1 spray intranasal BID 16 grams 2RF R09.81 - Nasal congestion benzonatate Use for 14 days two times a day, then may take as needed 100 mg PO BID PRN 30 caps 3RF cough R05.9 - Cough, unspecified loratadine take one tab daily x 14 days, then may used as needed 10 mg PO DAILY PRN 30 tabs 1RF allergic symptoms
[2024-06-26 10:42] VITALS: BP 116/86; PULSE 118; TEMP 36; O2SAT 96; BMI 42.9
--- OUTSIDE RECORDS SUMMARY | 2024-06-26 12:37 | XMS_ITS | Encounter Summary ---
Author Organization [facility] Address [address] [place] [address] Phone Care Team Providers Care Nursing Instructor Name Role Phone Lavonne Rothman MD Primary Care Provider [phone] Encounter Details Date Type Department Care Team (Late st Contact Info) Description 11/22/2016 Conversion Encounter [facility] [address] [place] [address] Social History Tobacco Use Types Packs/Day Years Used Date Smoking Tobacco: Never Comments:Never smoker Sex and Gender Information Value Date Recorded Sex Assigned at Not on file Legal Sex Male 4:41 PM EDT Gender Identity Not on file Sexual Orientation Not on file documented as of this encounter Plan of Treatment Not on file documented as of this encounter Visit Diagnoses Not on filedocumented in this encounter Care Teams Nursing Instructor Relationship Specialty Start Date End Date Lavonne Rothman MD [address] [place] [address] PCP - General 11/16/16 10/17/22 documented as of this encounter
--- OUTSIDE RECORDS SUMMARY | 2024-06-26 12:37 | XMS_ITS | Clinical Summary ---
Author Organization [facility] Address [address] [place] [phone] Phone Care Team Providers Care Mortgage Accounting Clerk Name Role Phone Unavailable Primary Care Provider Unavailabl e Immunizations Immunization Administration Dates Next Due DTP 10/23/1995,08/09/1992,1990 DTaP 5 02/22/1997 Hep B, ped/adol 02/22/1997,12/18/1995,10/23/1995 Hib (PRP-T) 08/09/1992,1990 IPV 10/23/1995,08/09/1992,1990 Influenza Split 05/10/2011 Influenza, injectable, trivalent 04/29/2008 MMR 10/23/1995,08/09/1992 Meningococcal Conj (Menactra) MCV4P 09/24/2006 Td (adult) (MBL), 2 Lf tetan us toxoid, PF, adsorbed 04/28/2003 Tdap 09/24/2006 Social History Tobacco Use Types Packs/Day Years Used Date Smoking Tobacco: Never Comments:Never smoker Sex and Gender Information Value Date Recorded Sex Assigned at Not on file Legal Sex Male 4:41 PM EDT Gender Identity Not on file Sexual Orientation Not on file Last Filed Vital Signs Vital Sign Reading Time Taken Comments Blood Pressure 110/66 05/10/2011 12:00 AM EST Pulse 82 05/10/2011 12:00 AM EST Temperature 36.1 ??C (97 ??F) 03/13/2011 12:00 AM EST Respiratory Rate - - Oxygen Saturation - - Inhaled Oxygen Concentration - - Weight 120 kg (265 lb) 06/21/2011 12:00 AM EDT Height 170.2 cm (5' 7 ) 05/10/2011 12:00 AM EST Body Mass Index 41.5 05/10/2011 12:00 AM EST Plan of Treatment Health Maintenance Due Date Last Done Comments Varicella Vaccines (1 of 2 - 13+ 2-dose series) 2003 Consider Men B Vaccine (1 of 2 - Bexsero 2-dose series) 2006 DTaP,Tdap,and Td Vaccines (6 - Td or Tdap) 09/24/2016 09/24/2006, 04/28/2003, 02/22/1997, Additional history exists Influenza Vaccines (#1) 2023 05/10/2011, 04/29 COVID-19 Vaccine ( season) 2023 HIB Vaccines Completed 08/09/1992, 1990 IPV Vaccines Completed 10/23/1995, 07/1992, 1990 MMR Vaccines Completed 10/23/1995, 08/09/1992 Hepatitis B Vaccines Completed 02/22/1997, 12/18/1995, 10/23/1995 Meningococcal Vaccine Completed 09/24/2006 HPV Vaccines Aged Out No longer eligi ble based on patient's age to complete this topic Hepatitis A Vaccines Aged Out No long er eligible based on patient's age to complete this topic Men B Vaccine Aged Out No longer elig ible based on patient's age to complete this topic Pneumococcal Vaccine Aged Out No long er eligible based on patient's age to complete this topic
--- OUTSIDE RECORDS SUMMARY | 2024-06-26 12:37 | XMS_ITS | Data Portability ---
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 Patient intolerant of attempted removal. Recommend trial of mineral oil and return for another attempt at debridement. [email or web address] Not available 05/01/2024 16:38:22 Plan of Treatment Reminders Order Date Submit Date Provider Last Modified By Organization Details Last Modified Time Details Appointments None recorded. Lab None recorded. Referral None recorded. Procedures None recorded. Surgeries None recorded. Imaging None recorded. Medication Orders Mineral Oil Light topical 025 025 [email or web address] Not available 14:06:37 Patient TargetsNo targets recorded. Patient InstructionsNo instructions recorded. Reason for Referral None Reported. Problems Name Problem SNOMED Code Status Onset Date Resolution Date Notes Provider Name and Address Organization Details Recorded Time Impacted cerumen of bilateral ears 79364949930375 08 Active 2024 BINDU GARSIA PA-C [address] [place] [address], [address] [place] [address], [phone], [place] - [facility] 14:04:36 Problem Notes None recorded. Procedures Surgical History Date Name Laterality Status Provider Name and Address Organization Details Recorded Time Cerumen removal without microscope bilat completed BINDU GARSIA PA-C [address] [facility],[address], [address], [facility] - [facility] 05/01/2024 16:37:15 Imaging Results None recorded. Procedure Notes None recorded. Medical Equipment None Reported. Medications Name Sig Start Date Stop Date Status Note LastModified by Organization Details LastModified Time Mineral Oil Light topical Instill 3 drops into each ear at bedtime for 7 days then once weekly at bedtime 025 active Not Available Not Available Not Avai lable Vitals Date Recorded Body height Body mass index (BMI) Body weight Provider Name and Address Organization Details Last Updated DateTime 05/01/2024 172.72 cm 43.5 kg/m2 358919.42 g Ana Mendez [place] - [facility] 05/01/2024 13:58:35 Social History None recorded. Functional Status None recorded. Mental Status None recorded. Family History Nothing Reported. Medical History No medical history recorded. Past Encounters Encounter ID Performer Location Encounter Start Date Encounter Closed Date Diagnosis/Indication Diagnosis SNOMED-CT Code Diagnosis ICD10 Code Diagnosis Note [id number] BINDU GARSIA PA-C [facility] [address] [address] 05/01/2024 13:33:17 05/01/2024 14:10:57 Impacted cerumen of bilateral ears [id number] 124120 H61.23 Health Concerns Section Related Observation LastModified by Organization Detai ls LastModified Time None Recorded Concern Status LastModified by Organization Details LastModified Time None Recorded Advance Directives Directive None Recorded Payers Encounter Date Sequence Insurance Name Policy Number Policy Sanford Covered Member ID Sanford Member ID Guarantor Name 05/01/2024 1 [place]ICARE B-[place]: [employer] Siney Sim [id number] Siney Sim 05/01/2024 2 [place] Siney Sim [id number] Siney Sim Notes Date Note Type Note Provider Name and Address Organization Details Recorded Time 05/01/2024 text/html 34-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 And have brought him in for this today. He has given no indication of any otalgia and facility staff have noted no otorrhea. Hearing seems to be normal per caregiver. BINDU GARSIA PA-C [address] [place] [address], [phone], [facility] - [facility] 05/01/2024 16:38:47
== END 2024-06-26 11:38 | disposition home or self-care (01) ==
LOC: HO.HMCH 10:33
PROVIDERS: PCP Internal Medicine
DX: R05.1 Acute cough (principal); J39.9 Disease of upper respiratory tract, unspecified; R09.81 Nasal congestion; H61.23 Impacted cerumen, bilateral

== ENCOUNTER 2024-06-26 10:33 | Outpatient (REF) | payer MEDICARE, MEDICAID, SELFPAY | END 2024-06-26 10:34 | disposition home or self-care (01) | LOC: HO.LAB 10:33 | PROVIDERS: PCP Internal Medicine | DX: R05.1 Acute cough (principal); J39.9 Disease of upper respiratory tract, unspecified; R09.81 Nasal congestion; H61.23 Impacted cerumen, bilateral | CPT/HCPCS: 99212 ==

== ENCOUNTER 2024-10-01 09:05 | Outpatient (AMB) | payer MEDICARE, MEDICAID, SELFPAY ==
[2024-10-01 09:15] VITALS: BP 122/76; PULSE 88; O2SAT 98; BMI 42.9
--- NOTE | 2024-10-01 09:15 | MHC.PC.OV ---
Vital Signs 10/01/24 09:15 Height 5 ft 7 in Weight 274 lb BMI 42.9 BP 122/76 Blood Pressure Location Lt brachial Position Sitting Pulse 88 Pulse Source Pulse Oximeter Pulse Oximetry (%) 98 Oxygen Delivery Method Room Air Intake Visit Reasons: 6 Month F/U Allergies No Known Allergies Allergy (Verified 10/01/24 09:15) Medication List - Last Reconciled 10/01/24 by Medardo Denis MD acetaminophen 650 mg PO Q6H PRN benzonatate 100 mg PO BID PRN benztropine 0.5 mg PO DAILY clonidine HCl mg PO .QHS [DEPENDS XXXL As directed] dextromethorphan-guaifenesin 20-400 mg/5 mL 5 mL PO Q6H PRN [Diaper liners XXL As directed] divalproex 250 mg PO .QD fluticasone propionate 50 mcg/actuation 1 spray intranasal BID loratadine 10 mg PO DAILY PRN metformin ER 500 mg PO DAILY risperidone 0.5 mg PO BID risperidone takes 1.5 mg in am and 1 mg in the evening (correct dose 03/2024) Tobacco use date assessed: 06/26/24 Dental Screening Dental Screen Date: 06/26/24 [facility] Medical History (Updated 10/01/24 @ 10:29 by Medardo Denis MD) Obesity Vitamin D deficiency Autism Surgical History No pertinent past surgical history Family History Father No problems noted. Mother No problems noted. Social History Housing: Other Housing Other:: Residential Facility Alcohol intake: never Patient Tobacco Use Status: Never used Tobacco Tobacco use type: Cigarette e-Cigarette/Vaping Use: Never Used Second Hand Smoke Exposure: No service: No Current occupational status: disabled Cognitive needs: Yes Hearing needs: No Vision needs: No Questionnaire PHQ-9 Over the last 2 weeks, how often have you been bothered by any of the following problems? 1. Little interest or pleasure in doing things: not at all 2. Feeling down, depressed, or hopeless: not at all 3. Trouble falling or staying asleep, or sleeping too much: not at all 4. Feeling tired or having little energy: not at all 5. Poor appetite or overeating: not at all 6. Feeling bad about yourself - or that you are a failure or have let yourself or your family down: not at all 7. Trouble concentrating on things, such as reading the newspaper or watching television: not at all 8. Moving or speaking so slowly that other people could have noticed. Or the opposite - being so fidgety or restless that you have been moving around a lot more than usual: not at all 9. Thoughts that you would be better off or of hurting yourself in some way: not at all Total score: 0 Depression Screening Interpretation: Negative Depression Screening Done: Yes Source: Developed by Drs. Orville Aranda, Stephania Mcclellan, Jose Alfredo Diop and colleagues, with an educational antione from [employer]. Thrive Questionnaire Date Thrive assessed: 06/26/24 I am a: Parent/Caregiver What is your living situation today?: I have a steady place to live Within the past 12 months, did the food you bought not last and you didn't have the money to get more?: Never true Within the past 12 months, did you worry whether your food would run out before you got money to buy more?: Never true Do you have trouble paying for medicines?: No Do you have trouble getting transportation to medical appointments?: No Do you have trouble paying your heating and electricity bill?: No Do you have trouble taking care of your child, family member or friend?: No Do you have trouble with day-to-day activities such as bathing, preparing meals, shopping, managing finances, etc.?: No Are you currently unemployed and looking for a job?: No Are you interested in more education?: No Please select the resources that you would like help with: None Currently or been in a relationship where the following occur: No concerns reported THRIVE Score: 0 AUDIT C Alcohol Use Questionnaire (AUDIT-C) 1. How often do you have a drink containing alcohol?: Never 3. How often do you have six or more drinks on one occasion?: Never Total Score: 0 YAIMA-7 AMB Questionnaire YAIMA-7 Date YAIMA - 7 assessed: 10/01/24 Feeling nervous, anxious, or on edge: 0 = Not at all Not being able to stop or control worryin = Not at all Worrying too much about different things: 0 = Not at all Trouble relaxin = Not at all Being so restless that it is hard to sit still: 0 = Not at all Becoming easily annoyed or irritable: 0 = Not at all Feeling afraid as if something awful might happen: 0 = Not at all Total YAIMA-7 score (0-4 normal; 5-9 mild; 10-14 moderate; 15-21 severe): 0 Source: Developed by Drs. Orville Aranda, Stephania Mcclellan, Jose Alfredo Diop and colleagues, with an educational antione from [employer]. Physical exam (Primary Care) Vital Signs: Last Vital Signs Pulse 88 10/01/24 09:15 BP 122/76 10/01/24 09:15 Pulse Ox 98 10/01/24 09:15 Oxygen Delivery Method Room Air 10/01/24 09:15 BMI result Body Mass Index 42.9 Tobacco/Smoking Status: Tobacco use Status Tobacco use date assessed 06/26/24 10/01/24 09:18 Patient Tobacco Use Status Never used Tobacco 10/01/24 09:18 Tobacco use type Cigarette 10/01/24 09:18 e-Cigarette/Vaping Use Never Used 10/01/24 09:18 PHQ-9: PHQ-9 Score PHQ-9: Total score 0 10/01/24 09:18 Depression Screening Interpretation: Negative Thrive Assessment: Date of Thrive Assessment Date Thrive assessed 06/26/24 10/01/24 09:18 Currently or been in a relationship where the following occur: No concerns reported Const General: alert; No acute distress Eyes Conjunctivae: conjunctivae normal Resp Auscultation: clear to auscultation bilaterally Cardio Rate: regular rate Rhythm: regular rhythm GI Inspection: Yes normal to inspection Extrem General: Yes normal to inspection and No edema Coding Level of Care Code Est Pt Level 4 (69545) Diagnoses Morbid obesity E66.01 Autism F84.0 Allergic rhinitis J30.9 Assessment & Plan Assessment & Plan (1) Morbid obesity: Code(s): E66.01 - Morbid (severe) obesity due to excess calories Category: Medical Plan: Advised to continue on with diet and exercise to lose weight. Patient has been placed on metformin (2) Autism: Comment: JOHNNY AYALA [place] ZOHRA [address] Babola Q 3-4 months Code(s): F84.0 - Autistic disorder Category: Medical Plan: Continue with present medication. Patient on clonidine, Depakote, risperidone (3) Allergic rhinitis: Code(s): J30.9 - Allergic rhinitis, unspecified Category: Medical Plan: With taking the nasal spray as well as allergy medication Claritin Plan History of Present Illness The patient is a 34-year-old male presenting for a follow-up visit. The patient has a history of autism, which is a developmental disorder characterized by difficulties with social interaction and communication. He also has mixed urinary incontinence, which involves both stress and urge incontinence. In June, the patient was seen for impacted serum and nasal congestion, which was treated with allergy medication. His last blood work in December 2023 showed normal results across various parameters including blood count, electrolytes, renal function, blood sugar, liver function, and cholesterol. The patient is currently on clonidine, Depakote, risperidone, and metformin. He has been advised to continue with diet and exercise to manage his weight. Health Maintenance - Advised to continue with diet and exercise for weight management Social History Review of Systems - Neurological: Reports autism. - Genitourinary: Reports mixed urinary incontinence. - Respiratory: Reports nasal congestion. Physical Exam Results - Labs: Normal blood count, electrolytes, renal function, blood sugar, liver function, cholesterol (December 2023). Plan The patient will continue with his current medications, including clonidine, Depakote, risperidone, and metformin. He is advised to maintain a healthy diet and exercise regimen to aid in weight management. Follow-up visits will be scheduled as needed to monitor his conditions and adjust treatment plans accordingly. Patient was informed and verbally consented to the use of an ambient scribe for clinic note documentation during this visit. Discussion Notes Patient Instructions - Continue taking your prescribed medications: clonidine, Depakote, risperidone, and metformin. - Maintain a healthy diet and exercise regularly to help manage your weight. - Schedule follow-up appointments as advised. Orders: Orders Complete Blood Count Auto Diff Today E66.01 - Morbid (severe) obesity due to excess calories Free T4 (Free Thyroxine) Today E66.01 - Morbid (severe) obesity due to excess calories Valproate Today E66.01 - Morbid (severe) obesity due to excess calories Comprehensive Met. Panel Today E66.01 - Morbid (severe) obesity due to excess calories Hemoglobin A1c Today E66.01 - Morbid (severe) obesity due to excess calories Thyroid Stimulating Hormone Today E66.01 - Morbid (severe) obesity due to excess calories Lipid Panel Today E66.01 - Morbid (severe) obesity due to excess calories, E78.00 - Pure hypercholesterolemia, unspecified Vitamin B12 and Folate Today E66.01 - Morbid (severe) obesity due to excess calories HIV Ab/Ag Today F84.0 - Autistic disorder T Spot TB Today F84.0 - Autistic disorder Hepatitis B,C Profile Today F84.0 - Autistic disorder, R79.89 - Other specified abnormal findings of blood chemistry
--- OUTSIDE RECORDS SUMMARY | 2024-10-01 09:52 | XMS_ITS | Data Portability ---
Author Organization [place] - [facility], Allergy Address [address] [address] Care Team Providers Care Freelance Director Name Role Phone STEVAN MARVIN Referring Provider [phone] Assessment Encounter Date Assessment Date Assessment LastModified [...] Recorded Time Impacted cerumen of bilateral ears [id number] 08 Active 2024 BINDU GARSIA PA-C [address] [place] [address], [phone], [facility] - [facility] 14:04:36 Problem Notes None recorded. Procedures Surgical History Date Name Laterality Status Provider Name and Address Organization Details Recorded Time Cerumen removal without microscope bilat completed BINDU GARSIA PA-C 100 [facility],[address], [address], [facility] - [facility] 05/01/2024 16:37:15 Imaging Results None recorded. Procedure [...] Updated DateTime 05/01/2024 172.72 cm 43.5 kg/m2 277763.42 g Ana Mendez [place] - [facility] 05/01/2024 13:58:35 Social History None recorded. Functional Status None recorded. Mental Status None recorded. Family History Nothing Reported. Medical History No medical history recorded. Past Encounters Encounter ID Performer Location Encounter Start Date Encounter Closed Date Diagnosis/Indication Diagnosis SNOMED-CT Code Diagnosis ICD10 Code Diagnosis Note [id number] BINDU GARSIA PA-C [facility] [address] [address] 05/01/2024 13:33:17 05/01/2024 14:10:57 Impacted cerumen of bilateral ears [id number] 209057 H61.23 Health Concerns Section Related Observation LastModified by Organization Detai ls LastModified Time None Recorded Concern Status LastModified by Organization Details LastModified Time None Recorded Advance Directives Directive None Recorded Payers Insurance Date Sequence Insurance Name Policy Number Policy Sanford Covered Member ID Sanford Member ID Guarantor Name 05/01/2024 1 [place] [employer] Siney Sim [id number] Siney Sim 05/01/2024 2 [place] Siney Sim [id number] Siney Sim Notes Date Note Type Note Provider Name and Address Organization Details Recorded Time 05/01/2024 text/html 34-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 And have brought him in for this today. He has given no indication of any otalgia and facility staff have noted no otorrhea. Hearing seems to be normal per caregiver. BINDU GARSIA PA-C [address] [place] [address], [phone], [facility] - [facility] 05/01/2024 16:38:47
== END 2024-10-01 10:09 | disposition home or self-care (01) ==
LOC: HO.HMCH 09:06
PROVIDERS: PCP Internal Medicine; Visit Provider Internal Medicine
DX: J30.9 Allergic rhinitis, unspecified (principal); E66.01 Morbid (severe) obesity due to excess calories; F84.0 Autistic disorder; Z68.41 Body mass index [BMI] 40.0-44.9, adult

== ENCOUNTER → 2024-10-01 09:05 | Outpatient (BNVA) | payer MEDICARE, MEDICAID, SELFPAY | PROVIDERS: PCP Internal Medicine; Visit Provider Internal Medicine | DX: E66.01 Morbid (severe) obesity due to excess calories (principal); F84.0 Autistic disorder; J30.9 Allergic rhinitis, unspecified | CPT/HCPCS: 99212 ==

== ENCOUNTER 2025-01-02 09:04 | Outpatient (REF) | payer MEDICARE, MEDICAID, SELFPAY ==
[2025-01-02 09:26] LABS: MANUAL DIFF FLAG NO
[2025-01-02 09:53] LABS: Hematocrit 44.1 % (42.0-52.0); Hemoglobin 14.9 g/dl (14.0-18.0); Imm Gran Abs Auto 0.03 X10*3/uL (0.00-0.03); Imm Gran Pct Auto 0.3 % (0.0-0.4); Lymphocytes Absolute Auto 2.2 X10*3/uL (1.2-4.9); Mean Corpuscular HGB Conc 33.8 g/dl (31.0-36.0); Mean Corpuscular Hemoglobin 29.3 pg (27.0-33.0); Mean Corpuscular Volume 86.8 fL (80.0-98.0); NRBC Abs Auto 0.000 X10*3/uL (0.0-0.012); NRBC Pct Auto 0.0 /100WBC (0.0-0.2); Platelet Count 302 X10*3/uL (160-400); Red Blood Count 5.08 X10*6/uL (4.60-5.80); White Blood Count 9.2 X10*3/uL (4.8-10.8)
[2025-01-02 10:26] LABS: Total Hemoglobin (HGBA1C) 3786.1837 umol/L
[2025-01-02 11:41] LABS: Alanine Aminotransferase 23 U/L (0-40); Albumin Level 4.1 g/dL (3.5-5.0); Alkaline Phosphatase 55 U/L (39-117); Anion Gap 12 (12-20); Aspartate Amino Transferase 22 U/L (5-37); Blood Urea Nitrogen 8 mg/dL (9-16); Calcium 9.1 mg/dL (8.4-10.2); Carbon Dioxide 25 mmol/L (22-29); Chloride 107 mmol/L (96-108); Cholesterol 168 mg/dL (<200); Estimated Glomerular Filt Rate > 60; HDL Cholesterol 30 mg/dL (>40); Potassium 4.2 mmol/L (3.3-5.1); Sodium 140 mmol/L (135-145); Total Protein 8.0 g/dL (6.5-8.0); Triglycerides 90 mg/dL (<150)
[2025-01-02 11:58] LABS: Free T4 (Free Thyroxine) 1.26 ng/dL (0.71-1.85); Thyroid Stimulating Hormone 0.72 uIU/mL (0.32-4.0)
[2025-01-02 12:03] LABS: Folate 9.0 ng/mL (> or = 4.0); Vitamin B12 480 pg/mL (200-900)
[2025-01-04 04:46] LABS: HBS Num1 101.30 mIU/mL (0-7.99); HBc Num1 0.11 S/CO (0.00-0.79); HBsAGNum1 0.46 S/CO (0.00-0.99); HIV Num 1 0.06 S/CO (0.00-0.99); Hepatitis B Surface Antigen Negative (Negative); ~HepC Num1 0.14 S/CO (0.00-0.79); ~Hepatitis B Surface Antibody REACTIVE (Nonreactive); ~Hepatitis C Antibody Nonreactive (Nonreactive)
== END 2025-01-02 09:05 | disposition home or self-care (01) ==
LOC: HO.LAB 09:04
PROVIDERS: PCP Internal Medicine; Visit Provider Internal Medicine
DX: Z11.4 Encounter for screening for human immunodeficiency virus [HIV] (principal); E66.01 Morbid (severe) obesity due to excess calories; R79.89 Other specified abnormal findings of blood chemistry; E78.00 Pure hypercholesterolemia, unspecified; F84.0 Autistic disorder
CPT/HCPCS: 36415; 80053; 80061; 80164; 82607; 82746; 83036; 84439; 84443; 85025; 86704; 86706; 86803; 87340; 87389

== ENCOUNTER 2025-01-04 07:35 | Outpatient (REF) | payer MEDICARE, MEDICAID, SELFPAY ==
--- OUTSIDE RECORDS SUMMARY | 2025-01-04 07:40 | XMS_ITS | Data Portability ---
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 Patient intolerant of attempted removal. Recommend trial of mineral oil and return for another attempt at debridement. 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 Cerumen impaction was completely obstructing the bilateral external auditory canals. Patient could not tolerate attempted removal with instruments or suction. Tympanic membranes are unable to be visualized today. Debridement under sedation is not recommended due to the risks of anesthesia, in addition to the lack of hearing concerns or infections. Recommend increasing use of mineral oil drops to 3 drops in both ears at bedtime 3 times a week. Follow up in 4 months for another removal attempt. Case discussed with Dr. Johnson. [email or web address] Not available 11/19/2024 13:33:32 Plan of Treatment Reminders Order Date Submit Date Provider Last Modified By Organization Details Last Modified Time Details Appointments Establish ed 15 2024 10:00A M DIANA YBARRA Not available Not available Not available Lab None recorded. Referral None recorded. Procedures None recorded. Surgeries None recorded. Imaging None recorded. Medication Orders mineral oil topical 2024 0814/ 025 [email or web address] [facility], [address] [place] [address], [address], 11/19/2024 10:33:36 Mineral Oil Light topical 2024 025 Not available 05/01/2024 14:06:37 Patient TargetsNo targets recorded. Patient InstructionsNo instructions recorded. Reason for Referral None Reported. Problems Name Problem SNOMED Code Status Onset Date Resolution Date Notes Provider Name and Address Organization Details Recorded Time Impacted cerumen of bilateral ears [id number] 08 Active 2024 Miriam vega [place] - [facility] 14:04:36 Autism spectrum disorder 37986391 Active 2024 DIANA YBARRA [address] [facility] [address], [place], [phone], [place] - [facility] 18:17:11 Problem Notes None recorded. Procedures Surgical History Date Name Laterality Status Provider Name and Address Organization Details Recorded Time Cerumen removal without microscope bilat completed DIANA YBARRA 100 [facility],[address], [address], [place] - [facility] 11/19/2024 13:28:18 Cerumen removal without microscope bilat completed Miriam Garsia [place] - [facility] 05/01/2024 16:37:15 Imaging Results None recorded. Procedure Notes None recorded. Medical Equipment None Reported. Medications Name Sig Start Date Stop Date Status Note LastModified by Organization Details LastModified Time mineral oil topical Instill 3 drops into each ear at bedtime three times a week for cerumen impaction 025 active Not Available Not Available Not Avai lable Vitals Date Recorded Body height Body mass index (BMI) Body weight Provider Name and Address Organization Details Last Updated DateTime 05/01/2024 172.72 cm 43.5 kg/m2 831163.42 g Ana Mendez [place] - [facility] 05/01/2024 13:58:35 Date Recorded Body height Body mass index (BMI) Body weight Provider Name and Address Organization Details Last Updated DateTime 11/19/2024 172.72 cm 41.7 kg/m2 809520.31 g Ana Motyka [place] - [facility] 11/19/2024 10:10:33 Social History None recorded. Functional Status None recorded. Mental Status None recorded. Family History Nothing Reported. Medical History No medical history recorded. Past Encounters Encounter ID Performer Location Encounter Start Date Encounter Closed Date Diagnosis/Indication Diagnosis SNOMED-CT Code Diagnosis ICD10 Code Diagnosis IMO Codes Diagnosis Note [id number] MIRIAM GARSIA PA-C [facility] [address] [address] 05/01/2024 13:33:17 05/01/2024 14:10:57 Impacted cerumen of bilateral ears 8312185850 566403 H61.23 [id number] DIANA YBARRA [facility] [address] [address] 11/19/2024 09:51:42 11/19/2024 10:38:30 Impacted cerumen of bilateral ears 1052095507 528993 H61.23 Autism spe ctrum disorder 73144462 F84.0 [id number] Health Concerns Section Related Observation LastModified by Organization Detai ls LastModified Time None Recorded Concern Status LastModified by Organization Details LastModified Time None Recorded Advance Directives Directive None Recorded Payers Insurance Date Sequence Insurance Name Policy Number Policy Sanford Covered Member ID Sanford Member ID Guarantor Name 11/06/2024 1 [place]IC[place] B-[place]: [employer] Siney Sim [id number] Siney Sim 11/06/2024 2 [place] Siney Sim [id number] Siney Sim Notes Date Note Type Note Provider Name and Address Organization Details Recorded Time 05/01/2024 text/html ROS as noted in the HPI 34-year-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 And have brought him in for this today. He has given no indication of any otalgia and facility staff have noted no otorrhea. Hearing seems to be normal per caregiver. 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 Patient was last seen by Miriam Garsia PA-C in April 2024 who was unable to attempt debridement. He is noted to have bilateral cerumen impactions. The caregiver has been using mineral oil, 3 drops at bedtime once weekly. They have no concerns about hearing, otalgia, or otorrhea. LOIS JOHNSON MD [address] [place] [address], [place], [phone], [facility] - [facility] 11/19/2024 16:42:04
[2025-01-06 20:43] LABS: TS Negative Control Passed; TS Panel A 0; TS Panel B 0; TS Positive Control Passed; TSpotTB Negative (Negative)
== END 2025-01-04 07:36 | disposition home or self-care (01) ==
LOC: HO.LAB 07:35
PROVIDERS: PCP Internal Medicine; Visit Provider Internal Medicine
DX: Z11.1 Encounter for screening for respiratory tuberculosis (principal); F84.0 Autistic disorder
CPT/HCPCS: 36415; 86481

== ENCOUNTER 2025-01-07 10:08 | Outpatient (AMB) | payer MEDICARE, MEDICAID, SELFPAY ==
[2025-01-07 10:10] VITALS: BP 134/72; PULSE 84; TEMP 36.1; O2SAT 98; BMI 42.2
--- NOTE | 2025-01-07 10:10 | A.OFFPC_ITS ---
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 Allergies No Known Allergies Allergy (Verified 01/07/25 10:14) Medication List - Last Reconciled 01/07/25 by Medardo Denis MD acetaminophen 650 mg (2 x 325 mg) PO Q6H PRN benzonatate 100 mg PO BID PRN benztropine 0.5 mg PO DAILY clonidine HCl mg PO .QHS [DEPENDS XXXL As directed] [Diaper liners XXL As directed] divalproex 250 mg PO .QD fluticasone propionate 50 mcg/actuation 1 spray intranasal BID loratadine 10 mg PO DAILY PRN metformin ER 500 mg PO DAILY risperidone 0.5 mg PO BID risperidone takes 1.5 mg in am and 1 mg in the evening (correct dose 03/2024) Tobacco use date assessed: 01/07/25 Dental Screening Dental Screen Date: 01/07/25 Did you have a dental visit in the last 12 months?: No Did you have a dental problem in the last 6 months where you did not have access to dental care?: No Was dental information given to patient?: Patient has dentist COUNT INCLUDES THE [facility] Medical History Obesity Vitamin D deficiency Autism Surgical History No pertinent past surgical history Family History Father No problems noted. Mother No problems noted. Social History Housing: Other Housing Other:: Residential Facility Alcohol intake: never Patient Tobacco Use Status: Never used Tobacco Tobacco use type: Cigarette e-Cigarette/Vaping Use: Never Used Second Hand Smoke Exposure: No service: No Current occupational status: disabled Cognitive needs: Yes Hearing needs: No Vision needs: No Questionnaire PHQ-9 Over the last 2 weeks, how often have you been bothered by any of the following problems? 1. Little interest or pleasure in doing things: not at all 2. Feeling down, depressed, or hopeless: not at all 3. Trouble falling or staying asleep, or sleeping too much: not at all 4. Feeling tired or having little energy: not at all 5. Poor appetite or overeating: not at all 6. Feeling bad about yourself - or that you are a failure or have let yourself or your family down: not at all 7. Trouble concentrating on things, such as reading the newspaper or watching television: not at all 8. Moving or speaking so slowly that other people could have noticed. Or the opposite - being so fidgety or restless that you have been moving around a lot more than usual: not at all 9. Thoughts that you would be better off or of hurting yourself in some way: not at all Total score: 0 Depression Screening Interpretation: Negative Depression Screening Done: Yes Source: Developed by Drs. Orville Aranda, Stephania Mcclellan, Jose Alfredo Diop and colleagues, with an educational antione from [employer]. 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 What is your living situation today?: I have a steady place to live Within the past 12 months, did the food you bought not last and you didn't have the money to get more?: Never true Within the past 12 months, did you worry whether your food would run out before you got money to buy more?: Never true Do you have trouble paying for medicines?: No Do you have trouble getting transportation to medical appointments?: No Do you have trouble paying your heating and electricity bill?: No Do you have trouble taking care of your child, family member or friend?: No Do you have trouble with day-to-day activities such as bathing, preparing meals, shopping, managing finances, etc.?: No Are you currently unemployed and looking for a job?: No Are you interested in more education?: No Please select the resources that you would like help with: None Currently or been in a relationship where the following occur: No concerns reported THRIVE Score: 0 AUDIT C Alcohol Use Questionnaire (AUDIT-C) 1. How often do you have a drink containing alcohol?: Never 3. How often do you have six or more drinks on one occasion?: Never Total Score: 0 YAIMA-7 AMB Questionnaire YAIMA-7 Date YAIMA - 7 assessed: 10/01/24 Feeling nervous, anxious, or on edge: 0 = Not at all Not being able to stop or control worryin = Not at all Worrying too much about different things: 0 = Not at all Trouble relaxin = Not at all Being so restless that it is hard to sit still: 0 = Not at all Becoming easily annoyed or irritable: 0 = Not at all Feeling afraid as if something awful might happen: 0 = Not at all Total YAIMA-7 score (0-4 normal; 5-9 mild; 10-14 moderate; 15-21 severe): 0 Source: Developed by Drs. Orville Aranda, Stephania Mcclellan, Jose Alfredo Diop and colleagues, with an educational antione from [employer]. Review of Systems Const Denies poor appetite and Denies weakness Eyes Denies no additional complaints ENT Reports Normal hearing present, Denies dizziness, Denies nasal congestion, Denies tinnitus and Denies sore throat Card Denies chest pain, Denies syncope, Denies rapid heart rate and Denies dyspnea Resp Denies cough and Denies dyspnea GI Denies change in stool character, Reports constipation, Denies diarrhea, Denies nausea and Denies vomiting Denies dysuria and Denies urinary frequency Neuro Reports Normal hearing present, Denies confusion, Denies dizziness, Denies syncope and Denies weakness Psych Denies confusion Physical exam (Primary Care) Vital Signs: Last Vital Signs Temp 97.0 F 01/07/25 10:10 Pulse 84 01/07/25 10:10 BP 134/72 01/07/25 10:10 Pulse Ox 98 01/07/25 10:10 Oxygen Delivery Method Room Air 01/07/25 10:10 BMI result Body Mass Index 42.2 Tobacco/Smoking Status: Tobacco use Status Tobacco use date assessed 01/07/25 01/07/25 10:16 Patient Tobacco Use Status Never used Tobacco 01/07/25 10:16 Tobacco use type Cigarette 01/07/25 10:16 e-Cigarette/Vaping Use Never Used 01/07/25 10:16 PHQ-9: PHQ-9 Score PHQ-9: Total score 0 01/07/25 10:36 Depression Screening Interpretation: Negative Thrive Assessment: Date of Thrive Assessment Date Thrive assessed 10/01/24 01/07/25 10:16 Currently or been in a relationship where the following occur: No concerns reported Const General: No confusion Orientation/consciousness: No confusion HENMT Head: Yes normocephalic Ears: external ears normal and TM's normal bilaterally Face and sinus: Yes normal facial exam Mouth: moist mucous membranes Throat: Yes tonsils normal Eyes Conjunctivae: conjunctivae normal Pupils: Equal, round and reactive pupils present and Pupil accommodation reflex normal Direct Ophthalmoscopy: normal light reflex Neck Neck: No lymphadenopathy Thyroid: Thyroid normal Chest Chest palpation & inspection: normal inspection of the chest Resp Effort & Inspection: normal respiratory effort and no audible wheezes Auscultation: clear to auscultation bilaterally, no crackles, no wheezes and lung sounds not diminished Cardio Rate: regular rate Rhythm: regular rhythm Peripheral pulses: radial pulses present and dorsalis pedis present GI Palpation (GI): no masses Auscultation: normal bowel sounds and normoactive bowel sounds Rectal Exam - Male: Yes deferred Skin General skin exam: no rashes or lesions noted Rashes: no rashes Neuro General: No confusion Cranial nerves: Yes Equal, round and reactive pupils present and Yes Normal hearing present Cognition (Neuro): normal cognition Gait exam (Neuro): Normal gait present Motor exam (neuro): 5/5 motor strength present throughout Deep tendon reflexes (DTR's): Right brachioradialis reflex intensity grade: 2+, Left brachioradialis reflex intensity grade: 2+, Right patellar reflex intensity grade: 2+ and Left patellar reflex intensity grade: 2+ Extrem General: No edema Coding Level of Care Code Est Pt Prev Care 18-39y([id number]) Diagnoses Annual physical exam Z00. Autism F84.0 Mixed incontinence urge and stress N39.46 Morbid obesity E66.01 Assessment & Plan Assessment & Plan (1) Annual physical exam: Code(s): Z00.00 - Encounter for general adult medical examination without abnormal findings Category: Medical Plan: Patient is advised to eat healthy, keep well hydrated, keep active and have adequate sleep. (2) Autism: Comment: JOHNNY hernandez [place] 40 [place] Q 3-4 months Code(s): F84.0 - Autistic disorder Category: Medical Plan: Continue with counseling and therapy. On clonidine Depakote and risperidone (3) Mixed incontinence urge and stress: Code(s): N39.46 - Mixed incontinence Category: Medical Plan: Patient on benztropine (4) Morbid obesity: Code(s): E66.01 - Morbid (severe) obesity due to excess calories Category: Medical Plan: Patient placed on metformin Plan History of Present Illness The patient is a 34-year-old male presenting for a physical examination and management of chronic conditions. The patient has a history of obesity, which has been a long-standing issue. He has been working on weight management through dietary modifications, including eating a balanced diet and reducing portion sizes. There is no mention of exercise routines or other weight management strategies. The patient also has autism, which affects his daily functioning and requires ongoing management. He is currently on multiple medications, including benzaprine, clonidine, depakote, risperidone, and metformin, to manage his conditions. The patient experiences mixed incontinence, which occurs intermittently, particularly at night and sometimes during the day. There have been discussions about using pull-ups for management, and a prescription for these was considered during the visit. Recent laboratory tests in December showed normal blood counts, electrolytes, renal function, blood sugar, hemoglobin A1c, liver function, cholesterol, B12, folic acid, and thyroid levels. The LDL cholesterol was noted to be 120 mg/dL, which is within normal limits but higher than previous measurements. Preventative care measures discussed include vaccinations for influenza and COVID-19, which are planned to be administered at home. Health Maintenance - Vaccinations for influenza and COVID-19 are planned to be administered at home. Social History - Nutrition: The patient is consuming a balanced diet with reduced portion sizes and avoiding fried foods. Review of Systems - Gastrointestinal: Denies nausea, vomiting, and reports normal bowel movements. - Genitourinary: Reports intermittent incontinence, particularly at night. Physical Exam General: Cooperative, healthy appearing, comfortable, no acute distress and well developed Orientation: Patient oriented x3 Limitations: No limitations Head: Normal to inspection Ears: Hearing grossly normal bilaterally Nose: Normal external nose present Face and sinus: Normal facial exam Eyes: Appearance normal, both eyes and all related structures Neck: Normal visual inspection and Yes full ROM Respiratory: Normal respiratory effort and able to speak in complete sentences. Clear to auscultation bilaterally Cardiovascular: Regular rate and rhythm. Normal S1 and S2 GI: Normal to inspection. Soft to palpation and nontender. Stomach is noisy Skin: No rashes or lesions noted Neuro: Patient oriented x3 Extremities: Normal to inspection Results - Labs: Normal blood count, electrolytes, renal function, blood sugar, hemoglobin A1c, liver function, cholesterol, B12, folic acid, and thyroid levels. - LDL cholesterol: 120 mg/dL, within normal limits but higher than previous measurements. Plan Patient was informed and verbally consented to the use of an ambient scribe for clinic note documentation during this visit. 1. Obesity The patient is advised to continue with dietary modifications, including a balanced diet and portion control, to manage obesity. Further recommendations for exercise or additional weight management strategies were not discussed during the visit. 2. Autism The patient is on a regimen of medications including benzaprine, clonidine, depakote, risperidone, and metformin to manage symptoms associated with autism. Continued counseling and therapy are recommended as part of the wellness plan. 3. Mixed Incontinence The patient experiences intermittent incontinence, particularly at night, and the use of pull-ups has been discussed as a management strategy. A prescription for pull-ups was considered to aid in managing this condition. 4. Preventative Care Vaccinations for influenza and COVID-19 are planned to be administered at home as part of preventative care measures. Discussion Notes During the visit, we discussed the management of obesity through dietary modifications and the importance of maintaining a balanced diet with portion control. We also reviewed the patient's medication regimen for autism, which includes benzaprine, clonidine, depakote, risperidone, and metformin. For mixed incontinence, we considered the use of pull-ups and discussed the prescription process for these. Preventative care measures, including vaccinations for influenza and COVID-19, were planned to be administered at home. Patient Instructions - Continue with dietary modifications, focusing on a balanced diet and portion control. - Follow the prescribed medication regimen for autism management. - Use pull-ups as needed for incontinence management. - Ensure vaccinations for influenza and COVID-19 are administered at home as planned. Medications: New [PULL UPS XXL] As directed 120 ea 12RF N39.46 - Mixed incontinence lorazepam (Ativan) orally 2 tabs 1 hours before the procedure PRN; 4 tabs 3RF anxiety F84.0 - Autistic disorder lorazepam (Ativan) orally 1-4 tabs 1 hours before the procedure PRN; 4 tabs 3RF anxiety F84.0 - Autistic disorder
--- OUTSIDE RECORDS SUMMARY | 2025-01-07 11:32 | XMS_ITS | Data Portability ---
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 Patient intolerant of attempted removal. Recommend trial of mineral oil and return for another attempt at debridement. Not available 05/01/2024 16:38:22 11/19/2024 11/19/2024 34 year old male, with a history of autism spectrum disorder, presents with a shake cutter from his retirement for repeat wax removal. Cerumen impaction was [...] mineral oil topical 2024 0814/ 025 [email or web address] [facility], [address] [place] [address], [id number], 11/19/2024 10:33:36 Mineral Oil Light topical 2024 025 Not available 05/01/2024 14:06:37 Patient TargetsNo targets recorded. Patient InstructionsNo instructions recorded. Reason for Referral None Reported. Problems Name Problem SNOMED Code Status Onset Date Resolution Date Notes Provider Name and Address Organization Details Recorded Time Impacted cerumen of bilateral ears 53256983492199 08 Active 2024 Miriam vega [place] - [facility] 14:04:36 Autism spectrum disorder [id number] Active 2024 DIANA YBARRA [address] [facility] [address], [place], [id number], [place] - [facility] 18:17:11 Problem Notes None recorded. Procedures Surgical History Date Name Laterality Status Provider Name and Address Organization Details Recorded Time Cerumen removal without microscope bilat completed DIANA YBARRA [address] [facility],[address], [address], [place] - [facility] 11/19/2024 13:28:18 Cerumen removal without microscope bilat completed Miriam Garsia [place] - [facility] 05/01/2024 16:37:15 Imaging Results None recorded. [...] Updated DateTime 05/01/2024 172.72 cm 43.5 kg/m2 349758.42 g Ana Mendez [place] - [facility] 05/01/2024 13:58:35 Date Recorded Body height Body mass index (BMI) Body weight Provider Name and Address Organization Details Last Updated DateTime 11/19/2024 172.72 cm 41.7 kg/m2 928888.31 g Ana Motyka [place] - [facility] 11/19/2024 10:10:33 Social History None recorded. Functional Status None recorded. Mental Status None recorded. Family History Nothing Reported. Medical History No medical history recorded. Past Encounters Encounter ID Performer Location Encounter Start Date Encounter Closed Date Diagnosis/Indication Diagnosis SNOMED-CT Code Diagnosis ICD10 Code Diagnosis IMO Codes Diagnosis Note [id number] MIRIAM GARSIA PA-C [facility] [address] [phone] 05/01/2024 13:33:17 05/01/2024 14:10:57 Impacted cerumen of bilateral ears [id number] 624345 H61.23 [id number] DIANA YBARRA [facility] [address] [address] 11/19/2024 09:51:42 11/19/2024 10:38:30 Impacted cerumen of bilateral ears 1234827152 105260 H61.23 Autism spe ctrum disorder [id number] F84.0 119413 Health Concerns Section Related Observation LastModified by Organization Detai ls LastModified Time None Recorded Concern Status LastModified by Organization Details LastModified Time None Recorded Advance Directives Directive None Recorded Payers Insurance Date Sequence Insurance Name Policy Number Policy San[employer] Covered Member ID Sanford Member ID Guarantor Name 11/06/2024 1 [place] [employer] Siney Sim [id number] Siney Sim 11/06/2024 2 [place] [facility] Siney Sim [id number] Siney Sim Notes Date Note Type Note Provider Name and Address Organization Details Recorded Time 05/01/2024 text/html ROS as noted in the HPI 34-year-old presents with shake cutter from his retirement for 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 And have brought him in for this today. He has given no indication of any otalgia and facility staff have noted no otorrhea. Hearing seems to be normal per caregiver. Miriam vega [place] - [facility] 05/01/2024 16:38:47 11/19/2024 text/html ROS as noted in the HPI 34 year old male, with a history of autism spectrum disorder, presents with a shake cutter from his retirement for repeat wax removal. Patient was last seen by Miriam Garsia PA-C in April 2024 who was unable to attempt debridement. He is noted to have bilateral cerumen impactions. The caregiver has been using mineral oil, 3 drops at bedtime once weekly. They have no concerns about hearing, otalgia, or otorrhea. LOIS JOHNSON MD [address] [place] [address], [place], [phone], [facility] - [facility] 11/19/2024 16:42:04
== END 2025-01-07 11:00 | disposition home or self-care (01) ==
LOC: HO.HMCH 10:08
PROVIDERS: PCP Internal Medicine; Visit Provider Internal Medicine
DX: Z00.00 Encounter for general adult medical examination without abnormal findings (principal); F84.0 Autistic disorder; E66.01 Morbid (severe) obesity due to excess calories; Z68.41 Body mass index [BMI] 40.0-44.9, adult; N39.46 Mixed incontinence

== ENCOUNTER → 2025-01-07 10:08 | Outpatient (BNVA) | payer MEDICARE, MEDICAID, SELFPAY | PROVIDERS: PCP Internal Medicine; Visit Provider Internal Medicine | DX: Z00.00 Encounter for general adult medical examination without abnormal findings (principal); F84.0 Autistic disorder; N39.46 Mixed incontinence; E66.01 Morbid (severe) obesity due to excess calories; Z68.41 Body mass index [BMI] 40.0-44.9, adult | CPT/HCPCS: 96127; 99395 ==